=== PATIENT | female | born 1965 | race Caucasian/White ===

== ENCOUNTER 2023-02-14 09:40 | Emergency (ER) | payer MEDICAID ==
[~2023-02-14] VITALS: Ht 152.4 cm; Wt 58.0 kg
[2023-02-14] MEDS ORDERED: ACETAMINOPHEN 325MG TABLET PO ONE (11:15)
[2023-02-14] MEDS ORDERED: IBUPROFEN 400MG TABLET PO ONE (11:15)
[2023-02-14 12:24] VITALS: BP 130/76
[2023-02-14] MEDS ORDERED: IBUP-2028 MT (12:49)
== END 2023-02-14 13:01 | disposition home or self-care (01) ==
LOC: ER 09:40
DX: I10 Essential (primary) hypertension (principal); M54.2 Cervicalgia
CPT/HCPCS: 93005; 99284